=== PATIENT | male | born 1985 | race Two or more races ===

== ENCOUNTER 2016-10-17 16:30 | Emergency (ER) | payer OTHER ==
--- NOTE | 2016-10-17 17:49 | ER Document Report ---
HPI - HPI Patient complains to provider of: thoracic back pain Onset: Other - 1 month Onset/Duration: Gradual Quality of pain: Throbbing Pain Level: 3 Context: 31-year-old male who takes Nucynta for chronic low back started having mid thoracic back pain 1 month ago. It is gotten to the point where he had to leave work at [employer] today. The pain is worse with movement, taking a deep breath , laying supine, trying to stretch the area, the pain is worse radiating to the right periscapular area. No recent upper respiratory tract infection or chills. No heart disease. He takes Nucynta 75 mg 4 times a day. Associated Symptoms: None Exacerbated by: Movement, Other - deep breath Relieved by: Denies - CARDIOVASCULAR Cardiovascular: DENIES: Chest pain - DERM Skin Color: Normal Past Medical History - General Information source: Patient - Social History Smoking Status: Current Every Day Smoker Chew tobacco use (# tins/day): No Frequency of alcohol use: None Drug Abuse: None Lives with: Spouse/Significant other Family History: Reviewed & Not Pertinent Patient has suicidal ideation: No Patient has homicidal ideation: No - Past Medical History Cardiac Medical History: Reports: Hx Hypercholesterolemia Renal/ Medical History: Reports: Hx Kidney Stones. Denies: Hx Peritoneal Dialysis - Immunizations Immunizations up to date: Yes Hx Diphtheria, Pertussis, Tetanus Vaccination: Yes - states tetanus within last five years Vertical Provider Document - CONSTITUTIONAL Agree With Documented VS: Yes Exam Limitations: No Limitations General Appearance: No Apparent Distress - INFECTION CONTROL TRAVEL OUTSIDE OF THE [place] IN LAST 30 DAYS: No - HEENT HEENT: Atraumatic, Normocephalic - NECK Neck: Supple - asssssssssssssssssssssssssssssssssssssssssssssssssssssssssssssssssssssssssssssss ssssssssssssss ssssssssssssssssssssssssssssssssssssssssssssssssssssssssssssssssssaadaaaaaaaaaaa aaaaaaaaaaaaaaaaaaaaaaaaaaaaaaaaaaaaaaaaaaaaaaaaaaaaaaaaaaaaaaaaaaaaaaaaaaaaaaaa aaaaaaaaaaaaaaaaaaaaaaaaaaaaaaaaaaaaaaaa aaaaaaaaaaaaaaaaaaaaaaaaaaaaaaaaaaaaaaaaaaaaaaaaaaaaaaaaaaaaaaaaassssssssssssssd ssssssssssssssssssssssssssssssssssssssssssssssssssssssssssssssssssssssssssssssss ssssssssssssssssssssssssssssssssssssssss ssssssssssssssssssssssssssssssssssssssssssssssssssssssssssssssssssssssssssssssss ssssssssssssssssssssssssssssssssssssssssssssssssssssssd - RESPIRATORY Respiratory: Breath Sounds Normal, No Respiratory Distress O2 Sat by Pulse Oximetry: 97 - CARDIOVASCULAR Cardiovascular: Regular Rate, Regular Rhythm - BACK Back: Normal Inspection Notes: tender mid t spine and right thoracic paraspinal muscles extending to periscapular muscles. No rash - MUSCULOSKELETAL/EXTREMETIES Musculoskeletal/Extremeties: CELIO ADHIKARI - NEURO Level of Consciousness: Awake, Alert, Appropriate Motor/Sensory: No Motor Deficit, No Sensory Deficit - DERM Integumentary: Warm, Dry, No Rash Course - Re-evaluation Re-evalutation: 10/17/16 18:[address] Sultana as long as he has equal bilateral pulses in feet, and no pectus excavatum, marfan's syndrome. - Vital Signs Vital signs: Temp Pulse Resp BP Pulse Ox 98.4 F 108 H 16 129/86 H 97 10/17/16 16:33 10/17/16 16:33 10/17/16 16:33 10/17/16 16:33 10/17/16 16:33 Discharge - Discharge Clinical Impression: Thoracic back pain Qualifiers: Chronicity: chronic Back pain laterality: right Qualified Code(s): M54.6 - Pain in thoracic spine Condition: Good Disposition: HOME, SELF-CARE Instructions: Warm Packs ([facility]), Upper Back Strain ([facility]), Anti-Inflammatory Medication ([facility]) Additional Instructions: warm compress to er if worse chest xray is negative see your pain management doctor for further evalution if persists Please complete the patient satisfaction survey if you get one, and return it.. If you do not receive a survey, then you can go to the [facility] website, [email or web address] and place your comments about your very good care. Thank you very much. It was a pleasure being your medical provider today. Prescriptions: Ibuprofen [Motrin 800 mg Tablet] 800 mg PO Q8HP PRN #30 tablet PRN Reason: Forms: Return to Work Referrals: MARCELINO ORDOÑEZ MD [Primary Care Provider] - Follow up as needed
[2016-10-17] MEDS ORDERED: KETOROLAC TROMETHAMINE 60 MG/2 ML SDV IM ONE (18:12)
[2016-10-17 19:06] VITALS: BP 142/50
== END 2016-10-17 19:05 | disposition home or self-care (01) ==
LOC: ER 16:30
DX: M54.6 Pain in thoracic spine (principal); G89.29 Other chronic pain; M54.5 Low back pain; F17.200 Nicotine dependence, unspecified, uncomplicated; E78.00 Pure hypercholesterolemia, unspecified; Z87.442 Personal history of urinary calculi
CPT/HCPCS: 99283; 71020; J1885

== ENCOUNTER 2016-10-25 22:46 | Emergency (ER) | payer OTHER ==
[2016-10-26] MEDS ORDERED: DIAZEPAM INJ 10 MG/2 ML DISP.SYRIN IM ONE (01:53)
--- NOTE | 2016-10-26 01:55 | ER Document Report ---
ED General - General Chief Complaint: Neck and Upper Back Pain Stated Complaint: SHOULDER/BACK PAIN Time seen by provider: 01:53 Notes: Patient is a 31-year-old male that comes emergency department for chief complaint of one week of mid upper back pains bilaterally, he states that he feels like he almost cannot move now because the symptoms have worsened, he has tried heat but it has not helped. He sees pain management, he obtained an MRI of the thoracic spine but states he was told this was normal. He denies injury. He states he has a history of L5 stenosis and takes gabapentin and Nucynta. Patient denies urinary incontinence, numbness, fever, history of IV drug abuse, he denies any other medical history. TRAVEL OUTSIDE OF THE [place] IN LAST 30 DAYS: No - Related Data Allergies/Adverse Reactions: No Known Allergies Allergy (Verified 08/23/15 13:24) Past Medical History - General Information source: Patient - Social History Smoking Status: Never Smoker Chew tobacco use (# tins/day): No Drug Abuse: None Lives with: Spouse/Significant other Family History: Reviewed & Not Pertinent - Past Medical History Cardiac Medical History: Reports: Hx Hypercholesterolemia Renal/ Medical History: Reports: Hx Kidney Stones. Denies: Hx Peritoneal Dialysis Past Surgical History: Reports: Hx Appendectomy - Immunizations Immunizations up to date: Yes Hx Diphtheria, Pertussis, Tetanus Vaccination: Yes - states tetanus within last five years Review of Systems - Review of Systems Constitutional: See HPI EENT: No symptoms reported Cardiovascular: No symptoms reported Respiratory: No symptoms reported Gastrointestinal: No symptoms reported Genitourinary: No symptoms reported Male Genitourinary: No symptoms reported Musculoskeletal: See HPI Skin: No symptoms reported Hematologic/Lymphatic: No symptoms reported Neurological/Psychological: No symptoms reported Physical Exam - Vital signs Vitals: Temp Pulse Resp BP Pulse Ox 98.9 F 86 18 130/89 H 97 10/25/16 22:53 10/25/16 22:53 10/25/16 22:53 10/25/16 22:53 10/25/16 22:53 Interpretation: Normal - General General appearance: Alert, Anxious In distress: None - HEENT Head: Normocephalic, Atraumatic Eyes: Normal Conjunctiva: Normal Extraocular movements intact: Yes Eyelashes: Normal Pupils: PERRL Mouth/Lips: Normal Mucous membranes: Normal Pharynx: Normal Neck: Normal - Respiratory Respiratory status: No respiratory distress Chest status: Nontender Breath sounds: Normal. No: Decreased air movement, Wheezing Chest palpation: Normal - Cardiovascular Rhythm: Regular. No: Tachycardia Heart sounds: Normal auscultation, S1 appreciated, S2 appreciated Murmur: No - Abdominal Inspection: Normal Distension: No distension Bowel sounds: Normal Tenderness: Nontender. No: Tender, Guarding Organomegaly: No organomegaly - Back Back: Normal, Tender - Tender in the mid to upper bilateral parathoracic musculature with a few rigid muscle fibers, no midline tenderness, no saddle anesthesia, normal range of motion and strength of all extremities, normal distal neurovascular exam - Extremities General upper extremity: Normal inspection, Nontender, Normal color, Normal ROM , Normal temperature General lower extremity: Normal inspection, Nontender, Normal color, Normal ROM , Normal temperature, Normal weight bearing. No: Elizabeth's sign - Neurological Neuro grossly intact: Yes Cognition: Normal Orientation: AAOx4 Nori Coma Scale Eye Opening: Spontaneous Nori Coma Scale Verbal: Oriented Nori Coma Scale Motor: Obeys Commands Nori Coma Scale Total: 15 Speech: Normal Motor strength normal: LUE, RUE, LLE, RLE Sensory: Normal - Psychological Associated symptoms: Normal affect, Normal mood - Skin Skin Temperature: Warm Skin Moisture: Dry Skin Color: Normal Course - Re-evaluation Re-evalutation: Patient also informed me of additional symptoms that he thought of including about a 7 pound weight loss over the past several months, pain in his joints bilaterally, weakness in his legs. Patient has some tightness and pain with palpation in the bilateral upper thoracic paraspinal musculature, however his general appearance is good, his back exam is very unremarkable, patient has normal neurologic exam, vital signs are normal. CBC, ESR, chemistry completely unremarkable. Provided patient with coffee of his labs, he states he will follow-up with primary care for additional workup of his variety of symptoms. I did provide him with Valium for the muscle spasms in his thoracic back, patient does not have any midline tenderness or any signs of emergent abnormalities. Patient states understanding and agreement. - Vital Signs Vital signs: Temp Pulse Resp BP Pulse Ox 98.9 F 70 20 121/65 98 10/25/16 22:53 10/26/16 03:50 10/26/16 03:50 10/26/16 03:50 10/26/16 03:50 - Laboratory Result Diagrams: 10/26/16 02:35 10/26/16 02:35 Laboratory results interpreted by me: 10/26/16 02:35 RBC 5.88 H MCV 79 L Discharge - Discharge Clinical Impression: Upper back pain, Muscle spasm, Generalized weakness Condition: Stable Disposition: HOME, SELF-CARE Additional Instructions: The laboratory workup including inflammatory markers did not show any concerning abnormalities. Physical examination and symptoms are most consistent with muscle spasm of the upper parathoracic spinal musculature. Take the Valium as prescribed, take this instead of the methocarbamol. Follow-up with your provider for additional management. Consider autoimmune workup if strange symptoms continue. Return to the emergency department for any concerning or worsening symptoms. Prescriptions: Diazepam [Valium 5 mg Tablet] 1 - 2 tab PO TID #20 tablet Referrals: MARCELINO ORDOÑEZ MD [Primary Care Provider] - Follow up as needed
[2016-10-26 02:45] LABS: ABSOLUTE BASOPHILS # (AUTO) 0.1 10^3/uL (0.0-0.2); ABSOLUTE EOSINOPHILS # (AUTO) 0.1 10^3/uL (0.0-0.6); ABSOLUTE LYMPHOCYTES (AUTO) 2.5 10^3/uL (0.5-4.7); ABSOLUTE MONOCYTES (AUTO) 0.7 10^3/uL (0.1-1.4); BASOPHILS % (AUTO) 0.5 % (0-2); EOSINOPHILS % (AUTO) 1.1 % (0-6); HEMATOCRIT 46.7 % (37.9-51.0); HEMOGLOBIN 16.4 g/dL (13.5-17.0); HGB HCT DIFFERENCE 2.5; LYMPHOCYTES % (AUTO) 24.2 % (13-45); MEAN CORPUSCULAR HEMOGLOBIN 27.9 pg (27.0-33.4); MEAN CORPUSCULAR HGB CONC 35.1 g/dL (32.0-36.0); MEAN CORPUSCULAR VOLUME 79 fl (80-97); MONOCYTES % (AUTO) 6.5 % (3-13); RED BLOOD COUNT 5.88 10^6/uL (4.35-5.55); RED CELL DISTRIBUTION WIDTH 12.8 % (11.5-14.0); SEGMENTED NEUTROPHILS % (AUTO) 67.7 % (42-78); WHITE BLOOD COUNT 10.4 10^3/uL (4.0-10.5)
[2016-10-26 03:02] LABS: ALANINE AMINOTRANSFERASE 29 U/L (21-72); ALBUMIN 4.6 g/dL (3.5-5.0); ALKALINE PHOSPHATASE 73 U/L (38-126); ANION GAP 13 (5-19); ASPARTATE AMINO TRANSFERASE 27 U/L (17-59); BILIRUBIN,DIRECT 0.4 mg/dL (0.0-0.4); BILIRUBIN,TOTAL 0.9 mg/dL (0.2-1.3); BLOOD UREA NITROGEN 11 mg/dL (7-20); CALCIUM 9.9 mg/dL (8.4-10.2); CARBON DIOXIDE 26 mmol/L (22-30); CHLORIDE 103 mmol/L (98-107); CREATININE RESULT 0.85 mg/dL (0.52-1.25); GLUCOSE 110 mg/dL (75-110); POTASSIUM 3.9 mmol/L (3.6-5.0); SODIUM 142.2 mmol/L (137-145); TOTAL PROTEIN 7.4 g/dL (6.3-8.2)
[2016-10-26 03:26] LABS: ERYTHROCYTE SEDIMENTATION RATE 5 mm/hr (0-15)
[2016-10-26 03:51] VITALS: BP 121/65
== END 2016-10-26 03:50 | disposition home or self-care (01) ==
LOC: ER 22:46
DX: M54.6 Pain in thoracic spine (principal); M62.830 Muscle spasm of back; M48.06 Spinal stenosis, lumbar region; Z79.899 Other long term (current) drug therapy; M25.50 Pain in unspecified joint; R63.4 Abnormal weight loss; Z68.28 Body mass index [BMI] 28.0-28.9, adult
CPT/HCPCS: 99283; 96372; 36415; 85025; 85652; 80053; J3360